=== PATIENT | male | born 1975 | race Caucasian/White ===

== ENCOUNTER 2020-01-19 18:11 | Emergency (ER) | payer SELFPAY ==
[2020-01-19] MEDS ORDERED: Bupivacaine 0.5% 10 ML VIAL ONE (18:25)
[2020-01-19] MEDS ORDERED: Lidocaine 1% (PF) 30 ML VIAL ONE (18:27)
== END 2020-01-19 19:18 | disposition home or self-care (01) ==
LOC: ERS 18:11
DX: S61.216A Laceration without foreign body of right little finger without damage to nail, initial encounter (principal); F17.210 Nicotine dependence, cigarettes, uncomplicated; X58.XXXA Exposure to other specified factors, initial encounter
CPT/HCPCS: 12001; J2001; J3490

== ENCOUNTER 2025-06-02 08:22 | Emergency (ER) | payer SELFPAY | END 2025-06-02 09:15 | LOC: ERS 08:22 | DX: F15.90 Other stimulant use, unspecified, uncomplicated (principal); F17.210 Nicotine dependence, cigarettes, uncomplicated | CPT/HCPCS: 99282 ==